=== PATIENT | male | born 1965 | race American Indian/Alaskan Native ===

== ENCOUNTER 2017-11-12 12:24 | Emergency (ER) | payer MEDICARE ==
[2017-11-12 12:59] LABS: Hematocrit 43.4 % (35.5-45.6); Hemoglobin 14.4 gm/dl (11.8-15.2); Mean Corpuscular HGB Conc 33 % (32-34); Mean Corpuscular Hemoglobin 30 pg (28-32); Mean Corpuscular Volume 92 fl (84-94); Platelet Count 178 K/mm3 (140-440); Red Blood Count 4.75 M/mm3 (3.65-5.03)
[2017-11-12 13:12] LABS: BUN/Creatinine Ratio 24; Blood Urea Nitrogen 22 mg/dL (9-20); Calcium 9.1 mg/dL (8.4-10.2); Hemolysis Index 19
--- NOTE | 2017-11-12 13:43 | Cat Scan Report ---
CT scan of head without IV contrast: History: Seizure activity. Findings: Ventricles are normal in size and midline in location. No evidence of acute ischemia or hemorrhage. There is 1.65 cm area of multiple coarse calcification noted at the right cerebellum. This is seen adjacent to the midline and adjacent to fourth ventricle. No extra-axial fluid collection. Normal sinuses and mastoid air cells. Impression: Calcified mass right cerebellum. Calcified granuloma or hematoma or neoplasm such as calcified meningioma. No previous studies available. If clinically indicated further evaluation with MRI scan without and with contrast recommended.
[2017-11-12] MEDS ORDERED: NACL 0.9% 1000 ML 1,000 ML IV ONE (13:58)
--- NOTE | 2017-11-12 16:47 | Emergency Department Report ---
ED Seizure HPI - General Chief Complaint: Seizure Stated Complaint: SEIZURE Time Seen by Provider: 11/12/17 16:09 Source: patient Mode of arrival: Stretcher Limitations: No Limitations - History of Present Illness MD Complaint: seizure -: Sudden Description of Episode: loss of consciousness Witnessed:: Yes Trauma: No Seizure History: known seizure disorder Place: street/outdoors Associated Symptoms: denies other symptoms - Related Data Allergies Allergy/AdvReac Type Severity Reaction Status Date / Time Penicillins Allergy Anaphylaxis Verified 11/12/17 12:36 ED Review of Systems ROS: Stated complaint: SEIZURE Other details as noted in HPI Comment: All other systems reviewed and negative Constitutional: denies: chills, fever Eyes: denies: eye pain, eye discharge, vision change ENT: denies: ear pain, throat pain Respiratory: denies: cough, shortness of breath, wheezing Cardiovascular: denies: chest pain, palpitations Endocrine: no symptoms reported Gastrointestinal: denies: abdominal pain, nausea, diarrhea Genitourinary: denies: urgency, dysuria Musculoskeletal: denies: back pain, joint swelling, arthralgia Skin: denies: rash, lesions Neurological: denies: headache, weakness, paresthesias Psychiatric: denies: anxiety, depression Hematological/Lymphatic: denies: easy bleeding, easy bruising ED Past Medical Hx - Past Medical History Previous Medical History?: Yes Hx Diabetes: Yes Hx Seizures: Yes - Surgical History Past Surgical History?: No - Social History Smoking Status: Never Smoker Substance Use Type: None ED Physical Exam - General Limitations: No Limitations General appearance: alert, in no apparent distress - Head Head exam: Present: atraumatic, normocephalic - Eye Eye exam: Present: normal appearance - ENT ENT exam: Present: mucous membranes moist - Neck Neck exam: Present: normal inspection - Respiratory Respiratory exam: Present: normal lung sounds bilaterally. Absent: respiratory distress - Cardiovascular Cardiovascular Exam: Present: regular rate, normal rhythm. Absent: systolic murmur, diastolic murmur, rubs, gallop - GI/Abdominal GI/Abdominal exam: Present: soft, normal bowel sounds - Rectal Rectal exam: Present: deferred - Extremities Exam Extremities exam: Present: normal inspection - Back Exam Back exam: Present: normal inspection - Neurological Exam Neurological exam: Present: alert, oriented X3 - Psychiatric Psychiatric exam: Present: normal affect, normal mood - Skin Skin exam: Present: warm, dry, intact, normal color. Absent: rash ED Course Vital Signs 11/12/17 11/12/17 11/12/17 12:39 13:47 13:56 Temperature 98 F Pulse Rate 100 H Respiratory 16 16 Rate Blood Pressure 130/94 O2 Sat by Pulse 97 100 Oximetry - Reevaluation(s) Reevaluation #1: 11/12/17 16:51 Patient is feeling better and is ready to go. ED Medical Decision Making - Lab Data Result diagrams: 11/12/17 12:46 11/12/17 12:41 Critical care attestation.: If time is entered above; I have spent that time in minutes in the direct care of this critically ill patient, excluding procedure time. ED Disposition Condition: Stable Referrals: PRIMARY CARE, [Primary Care Provider] - 3-5 Days
[2017-11-12] MEDS ORDERED: D50W (25GM) Syringe IV PRN (18:38)
[2017-11-12] MEDS ORDERED: NOVOLOG SUB-Q ONE (18:44)
[2017-11-12] MEDS ORDERED: NOVOLOG SUB-Q SCH (22:00)
[2017-11-12 22:21] VITALS: BP 113/69
== END 2017-11-12 22:24 | disposition home or self-care (01) ==
LOC: ED 12:24
DX: G40.909 Epilepsy, unspecified, not intractable, without status epilepticus (principal); E11.9 Type 2 diabetes mellitus without complications; Z88.0 Allergy status to penicillin
CPT/HCPCS: 36415; 70450; 80048; 82962; 85027; 96360; 99285; J7030; J1815